=== PATIENT | male | born 2000 | race Asian ===

== ENCOUNTER 2022-11-11 13:46 | Observation (INO) ==
--- NOTE | 2022-11-11 14:03 | Emergency Department Note ---
History of Present Illness General Chief complaint: Abdominal Pain Stated complaint: ABDOMINAL PAIN Time Seen by Provider: 11/11/22 13:54 History of Present Illness Maximum Pain Intensity: 3 This is a 22-year-old male that presents to the emergency department via private vehicle with complaints of "abdominal pain". The patient notes that this past Tuesday around 6 PM he began with right lower quadrant abdominal pain. Pain was quite intense initially. He notes now the pain has improved but is still present when he palpates the right lower quadrant. He denies any history of similar. He denies any pertinent past medical history, surgeries or allergies. No alleviating factors. Aggravating factors are palpation of the area. There has been no reported fevers or vomiting. No blood in the urine or stool. Current pain 05/07. Patient denies any testicular pain or penile pain. 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 Beliefs That Will Affect Care: None Current Living Situation Comment: Lives with roommates Other Information That Helps Us Care for You: No Feels Safe at Home: Yes Safety Concerns: Feels Safe At This Time Assistive Devices: None Review of Systems A total of 10 systems reviewed and were otherwise negative Physical Exam Vital Signs Vital Signs - 24 hr 11/11/22 13:48 11/11/22 14:08 11/11/22 16:56 Temperature 37.0 C Temperature Source Temporal Artery Scan Pulse Rate 89 Pulse Rate [Apical] 87 68 Pulse Rate [Finger] Pulse Rhythm [Apical] Pulse Strength [Apical] Respiratory Rate 16 18 18 Respiratory Effort / Characteristics Non-Labored Spontaneous Respiratory Depth Normal Respiratory Pattern Blood Pressure 136/80 Blood Pressure [Left Arm] 126/70 128/82 Blood Pressure Mean 98 Blood Pressure Mean [Left Arm] 88 97 Blood Pressure Position Sitting Blood Pressure Position [Left Arm] Pulse Oximetry 96 99 98 Oxygen Delivery Method Room Air Room Air Oxygen Flow Rate Sepsis Recent Fever Within 48 Hours No Sepsis New/Unexplained Change in Mental Status No Sepsis Action Taken by Nursing No Action Required EWS Level of Consciousness - Last Result EWS Temperature - Last Result EWS Respiratory Rate - Last Result EWS Oxygen Saturation - Last Result EWS Oxygen in Use - Last Result EWS Score EWS Clinical Risk 11/11/22 18:00 11/11/22 19:16 11/11/22 19:20 Temperature 37.6 C H 36.4 C L Temperature Source Oral Temporal Artery Scan Pulse Rate Pulse Rate [Apical] 98 H 106 H 95 H Pulse Rate [Finger] Pulse Rhythm [Apical] Regular Regular Regular Pulse Strength [Apical] Normal Normal Respiratory Rate 18 18 16 Respiratory Effort / Characteristics Non-Labored Spontaneous Non-Labored Spontaneous Non-Labored Spontaneous Respiratory Depth Normal Normal Normal Respiratory Pattern Regular Regular Regular Blood Pressure Blood Pressure [Left Arm] 143/80 H 121/58 L 124/52 L Blood Pressure Mean Blood Pressure Mean [Left Arm] 101 79 76 Blood Pressure Position Blood Pressure Position [Left Arm] Semi-fowlers Semi-fowlers Semi-fowlers Pulse Oximetry 100 99 99 Oxygen Delivery Method Room Air Oxymask Room Air Oxygen Flow Rate 4 Sepsis Recent Fever Within 48 Hours Sepsis New/Unexplained Change in Mental Status Sepsis Action Taken by Nursing EWS Level of Consciousness - Last Result EWS Temperature - Last Result EWS Respiratory Rate - Last Result EWS Oxygen Saturation - Last Result EWS Oxygen in Use - Last Result EWS Score EWS Clinical Risk 11/11/22 19:30 11/11/22 19:40 11/11/22 19:50 Temperature Temperature Source Pulse Rate Pulse Rate [Apical] 97 H 90 101 H Pulse Rate [Finger] Pulse Rhythm [Apical] Regular Regular Regular Pulse Strength [Apical] Normal Normal Normal Respiratory Rate 18 16 14 Respiratory Effort / Characteristics Non-Labored Spontaneous Non-Labored Spontaneous Non-Labored Spontaneous Respiratory Depth Normal Normal Normal Respiratory Pattern Regular Regular Regular Blood Pressure Blood Pressure [Left Arm] 115/56 L 115/61 115/63 Blood Pressure Mean Blood Pressure Mean [Left Arm] 75 79 80 Blood Pressure Position Blood Pressure Position [Left Arm] Semi-fowlers Semi-fowlers Semi-fowlers Pulse Oximetry 99 96 97 Oxygen Delivery Method Room Air Room Air Room Air Oxygen Flow Rate Sepsis Recent Fever Within 48 Hours Sepsis New/Unexplained Change in Mental Status Sepsis Action Taken by Nursing EWS Level of Consciousness - Last Result EWS Temperature - Last Result EWS Respiratory Rate - Last Result EWS Oxygen Saturation - Last Result EWS Oxygen in Use - Last Result EWS Score EWS Clinical Risk 11/11/22 20:00 11/11/22 20:15 11/11/22 20:15 Temperature 36.9 C 37.0 C Temperature Source Oral Oral Pulse Rate Pulse Rate [Apical] 91 H Pulse Rate [Finger] 92 H Pulse Rhythm [Apical] Regular Pulse Strength [Apical] Normal Respiratory Rate 14 16 Respiratory Effort / Characteristics Non-Labored Spontaneous Respiratory Depth Normal Respiratory Pattern Regular Blood Pressure Blood Pressure [Left Arm] 115/74 112/70 Blood Pressure Mean Blood Pressure Mean [Left Arm] 87 84 Blood Pressure Position Blood Pressure Position [Left Arm] Semi-fowlers Lying Pulse Oximetry 97 94 Oxygen Delivery Method Room Air Room Air Oxygen Flow Rate Sepsis Recent Fever Within 48 Hours Sepsis New/Unexplained Change in Mental Status Sepsis Action Taken by Nursing EWS Level of Consciousness - Last Result Spontaneously Alert EWS Temperature - Last Result 37.0 EWS Respiratory Rate - Last Result 16 EWS Oxygen Saturation - Last Result 94 EWS Oxygen in Use - Last Result No EWS Score 2 EWS Clinical Risk Low Risk VITAL SIGNS - Vital signs and nursing notes were reviewed. Stable and afebrile. GENERAL -22-year-old male appearing his stated age who is in no acute distress. Communicates well with provider and answers questions appropriately. SKIN - Without rashes. No meningeal or petechial rash. The skin overlying the abdomen is unremarkable. HEAD - NC/AT. EYES - Sclera anicteric. NECK - No nuchal rigidity. LUNGS - Chest wall symmetric without accessory muscle use, intercostals retractions, or central cyanosis. Normal vesicular breath sounds CTA B/L. No wheezes, rales, or rhonchi appreciated. CARDIAC - RRR with S1/S2. No murmur, rubs, or gallops appreciated. ABDOMEN - Abdominal contour normal without pulsations or visible masses. BS normoactive all four quadrants. There is right lower quadrant abdominal tenderness to palpation. No palpable masses, hepatosplenomegaly, or ascites noted. EXTREMITIES - No clubbing or peripheral cyanosis. +5/5 strength noted in UE/LE bilaterally. NEUROLOGIC - Cranial nerves II through XII grossly intact. PSYCH - A&Ox3 and cooperates fully with examiner. Pt is very pleasant and interacts well with examiner. Course Administered Medications Enoxaparin Sodium (Enoxaparin Inj 40 Mg/0.4 Ml Syr) 40 mg SQ Q24H GRACE Stop: 12/12/22 07:59 Last Admin: 11/12/22 07:50 Dose: 40 mg Documented By: JESÚS Lactated Ringer's (Lr) 1,000 mls @ 15 mls/hr IV .Q24H GRACE Stop: 12/11/22 18:14 Last Infusion: 11/11/22 18:18 Dose: 0 mls/hr Documented By: Admin: 11/11/22 18:16 Dose: 15 mls/hr Documented By: Lactated Ringer's (Lr) 1,000 mls @ 50 mls/hr IV .Q20H GRACE Stop: 12/11/22 21:14 Last Admin: 11/11/22 21:42 Dose: 50 mls/hr Documented By: ALBERT Ketorolac Tromethamine (Ketorolac 30 Mg/Ml Vial) 30 mg IV Q6H GRACE Stop: 11/13/22 07:01 Last Admin: 11/12/22 06:09 Dose: 30 mg Documented By: Admin: 11/12/22 00:16 Dose: 30 mg Documented By: ALBERT Oxycodone/Acetaminophen (Oxycodone/Acetaminophen 5mg/325mg Tab) 1 tab PO Q6H PRN PRN Reason: Pain Stop: 11/25/22 21:15 Last Admin: 11/11/22 21:41 Dose: 1 tab Documented By: ALBERT Discontinued Medications Bupivacaine HCl/Epinephrine Bitart (Bupivacaine/Epinephrine 0.25% 1:200,000 30 Ml Vial) Confirm Administered Dose 30 ml .ROUTE .STK-MED ONE Stop: 11/11/22 18:03 Last Admin: 11/11/22 19:03 Dose: 30 ml Documented By: LESLY Fentanyl Citrate (Fentanyl Citrate Pf 100 Mcg/2 Ml Vial) Confirm Administered Dose 100 mcg .ROUTE .STK-MED ONE Stop: 11/11/22 19:35 Last Increment: 11/11/22 19:36 Dose: 25 mcg Documented By: MAREK Cefoxitin Sodium (Mefoxin) 2,000 mg in 60 mls @ 100 mls/hr IV NOW STA Stop: 11/11/22 17:58 Last Admin: 11/11/22 21:47 Dose: Not Given Documented By: ALBERT Ioversol (Optiray 320 500ml) 85 ml IV ONCE ONE Stop: 11/11/22 15:44 Last Admin: 11/11/22 15:43 Dose: 85 ml Documented By: ADONIS Medical Decision Making Laboratory Data 11/11/22 14:11 11/11/22 14:11 Lab Results 11/11/22 11/11/22 11/11/22 Range/Units 14:11 14:11 14:45 WBC 5.51 (4.8-10.8) K/ul RBC 5.43 (4.70-6.10) M/uL Hgb 16.5 (14.0-18.0) g/dl Hct 47.1 (42.0-52.0) % MCV 86.7 (80.0-100.0) fL MCH 30.4 (25.0-34.0) pg MCHC 35.0 (32.0-36.0) g/dL RDW Std Deviation 38.3 (36.4-46.3) fL RDW Coeff of Srinivas 12.1 (11.5-14.5) % Plt Count 222 (130-400) K/uL MPV 11.0 (9.4-12.4) fL Immature Gran % (Auto) 0.2 % Neut % (Auto) 49.3 % Lymph % (Auto) 42.8 % Granite % (Auto) 6.4 % Eos % (Auto) 0.9 % Baso % (Auto) 0.4 % Neut # (Auto) 2.72 (1.40-6.50) K/uL Lymph # (Auto) 2.36 (1.20-3.40) K/uL Granite # (Auto) 0.35 (0.11-0.59) K/uL Eos # (Auto) 0.05 (0.00-0.50) K/uL Baso # (Auto) 0.02 (0.00-0.20) K/uL Immature Gran # (Auto) 0.01 (0.01-0.20) K/uL Sodium 138 (136-145) mmol/L Potassium 3.7 (3.5-5.1) mmol/L Chloride 103 (98-107) mmol/L Carbon Dioxide 28 (21-32) mmol/L Anion Gap 7 (3-11) BUN 18 (6-23) mg/dl Creatinine 0.96 (0.6-1.4) mg/dl Est Cr Clr Drug Dosing Not Reportable Est GFR ( Amer) 131.4 ml/min Est GFR (Non-Af Amer) 113.3 ml/min BUN/Creatinine Ratio 18.8 (10-20) Glucose 112 H (70-99(Fasting)) mg/dl Calcium 9.7 (8.6-10.3) mg/dl Total Bilirubin 1.1 H (0.2-1.0) mg/dl AST 18 (13-39) U/L ALT 17 (7-52) U/L Alkaline Phosphatase 67 (34-104) U/L Total Protein 8.4 H (6.0-8.3) gm/dl Albumin 5.0 (3.4-5.0) gm/dl Globulin 3.4 (2.5-4.0) gm/dl Albumin/Globulin Ratio 1.5 (0.9-2) Lipase 10 L (11-82) U/L Urine Color Yellow Urine Appearance Cloudy A (Clear) Urine pH 8.0 H (4.5-7.5) Ur Specific [place] 1.028 (1.000-1.030) Urine Protein Negative (Negative) Urine Glucose (UA) Negative (Negative) Urine Ketones Negative (Negative) Urine Blood Negative (Negative) Urine Nitrite Negative (Negative) Urine Bilirubin Negative (Negative) Urine Urobilinogen Negative (Negative) Ur Leukocyte Esterase Negative (Negative) Urine WBC (Auto) 0 (0-5) /hpf Urine RBC (Auto) 0-4 (0-4) /hpf U Hyaline Cast (Auto) 0 (0-5) /lpf U Epithel Cells (Auto) 0-5 (0-5) /lpf Urine Bacteria (Auto) Negative (Negative) Imaging Data Radiologist's Impression: ABDOMEN AND PELVIS CT WITH IV CONTRAST CT DOSE: 894.60 mGy.cm HISTORY: Acute right lower quadrant abdominal pain RLQ abd pain x 2 days TECHNIQUE: Multiaxial CT images of the abdomen and pelvis were performed following the IV administration of 84 cc of Optiray, A dose lowering technique was utilized adhering to the principles of ALARA. COMPARISON STUDY: None. FINDINGS: There are a few tiny nodular foci at the lung bases measuring up to 3 mm, likely benign. The liver, spleen, gallbladder, pancreas, kidneys, and adrenal glands are within normal limits. No bowel wall thickening or obstruction. The appendix is fluid-filled and slightly dilated with the appendiceal tip measuring 8 mm. Mucosal hyperemia with trace periappendiceal inflammation. No abscess. The pelvic organs are unremarkable. No suspicious lytic or blastic osseous lesions. IMPRESSION: 1. Findings suspicious for early acute appendicitis. Surgical consultation is needed. 2. No pneumoperitoneum or abscess. ACT 112: Negative or not required by law. The above report was generated using voice recognition software. It may contain grammatical, syntax or spelling errors. Electronically signed by: Giles Zhu M.D. 11/11/2022 3:58 PM MDM Narrative Patient was seen and evaluated as above in room A11. Review was performed of triage nursing notes and vital signs. No previous visits for review in the EMR at time of assessment. After obtaining a thorough history and physical examination the above work up was performed. Patient presents to us today with about 2 days worth of right lower quadrant abdominal pain. It is reproducible to palpation on examination of the right lower quadrant. He clinically is well- appearing and nontoxic. He is afebrile. Options of care were discussed with the patient. He respectfully declined pain medication. IV access was established. Labs were drawn. CT scan was obtained of the abdomen/pelvis noting location of symptoms. Labs reveal no leukocytosis or concerning anemia. Mild hyperglycemia 112. T. bili elevation at 1.1. Urinalysis negative for concerning process. CT scan is concerning for early acute appendicitis. Patient's symptoms are concerning for acute appendicitis. General surgery was consulted. Please refer to further documentation regarding his stay. Cefoxitin 2 g recommended by general surgery and was ordered. GCS: 15 In the evaluation and treatment of this patient the following differential diagnoses were entertained: UTI, pyelonephritis, kidney stone, appendicitis, diverticulitis, perforation, among others. Impression & Plan Acute appendicitis Discharge Plan Visit Data Chief Complaint: Abdominal Pain Stated Complaint: ABDOMINAL PAIN ED Provider: Roverto Smith ED Midlevel Provider: Shane Monteiro Discharge Problem: Acute appendicitis Patient Disposition: Admitted As Inpatient Condition: Good Discharge Instructions Interventions: ED Discharge Assessment Last Done: 11/11/22 18:01
[2022-11-11 15:02] LABS: Basophils # (auto) 0.02 K/uL (0.00-0.20); Basophils % (auto) 0.4 %; Eosinophils # (auto) 0.05 K/uL (0.00-0.50); Eosinophils % (auto) 0.9 %; Hematocrit (blood only) 47.1 % (42.0-52.0); Hemoglobin 16.5 g/dl (14.0-18.0); Immature Granulocytes # (auto) 0.01 K/uL (0.01-0.20); Immature Granulocytes % (auto) 0.2 %; Lymphocytes # (auto) 2.36 K/uL (1.20-3.40); Lymphocytes % (auto) 42.8 %; Mean Corpuscular Hemoglobin 30.4 pg (25.0-34.0); Mean Corpuscular Volume 86.7 fL (80.0-100.0); Monocytes # (auto) 0.35 K/uL (0.11-0.59); Monocytes % (auto) 6.4 %; Neutrophils # (auto) 2.72 K/uL (1.40-6.50); Neutrophils % (auto) 49.3 %; Platelet Count 222 K/uL (130-400); RDW Coefficient of Variation 12.1 % (11.5-14.5); RDW Standard Deviation 38.3 fL (36.4-46.3); Red Blood Count 5.43 M/uL (4.70-6.10); White Blood Count 5.51 K/ul (4.8-10.8)
[2022-11-11 15:04] LABS: Appearance Urine Cloudy (Clear); Bacteria Urine Automated Negative (Negative); Bilirubin Urine Negative (Negative); Blood Urine Negative (Negative); Cast Urine Automated 0 /lpf (0-5); Color Urine Yellow; Epithelial Cell Urine Auto 0-5 /lpf (0-5); Glucose Urine UA Negative (Negative); Ketones Urine Negative (Negative); Leukocyte Esterase Urine Negative (Negative); Nitrite Urine Negative (Negative); Protein Urine Negative (Negative); RBC Urine Automated 0-4 /hpf (0-4); Specific Gravity Urine 1.028 (1.000-1.030); Urobilinogen Urine Negative (Negative); WBC Urine Automated 0 /hpf (0-5)
[2022-11-11 15:15] LABS: Alanine Aminotransferase 17 U/L (7-52); Albumin Globulin Ratio 1.5 (0.9-2); Alkaline Phosphatase 67 U/L (34-104); Anion Gap 7 (3-11); Aspartate Aminotransferase 18 U/L (13-39); BUN Creatinine Ratio 18.8 (10-20); Bilirubin,Total 1.1 mg/dl (0.2-1.0); Blood Urea Nitrogen 18 mg/dl (6-23); Calcium 9.7 mg/dl (8.6-10.3); Carbon Dioxide 28 mmol/L (21-32); Chloride 103 mmol/L (98-107); Est GFR (African American) 131.4 ml/min; Est GFR (Non-African American) 113.3 ml/min; Globulin 3.4 gm/dl (2.5-4.0); Glucose 112 mg/dl (70-99(Fasting)); Lipase 10 U/L (11-82); Potassium 3.7 mmol/L (3.5-5.1); Sodium 138 mmol/L (136-145); Total Protein 8.4 gm/dl (6.0-8.3)
[2022-11-11] MEDS ORDERED: OPTIRAY 320 500ml IV ONE (15:43)
--- NOTE | 2022-11-11 15:59 | CT Scan Report ---
ABDOMEN AND PELVIS CT WITH IV CONTRAST CT DOSE: 894.60 mGy.cm HISTORY: Acute right lower quadrant abdominal pain RLQ abd pain x 2 days TECHNIQUE: Multiaxial CT images of the abdomen and pelvis were performed following the IV administrat ion of 84 cc of Optiray, A dose lowering technique was utilized adhering to the principles of ALARA. COMPARISON STUDY: None. FINDINGS: There are a few tiny nodular foci at the lung bases measuring up to 3 mm, likely benign. Th e liver, spleen, gallbladder, pancreas, kidneys, and adrenal glands are within normal limits. No isabel l wall thickening or obstruction. The appendix is fluid-filled and slightly dilated with the appendic eal tip measuring 8 mm. Mucosal hyperemia with trace periappendiceal inflammation. No abscess. The pe lvic organs are unremarkable. No suspicious lytic or blastic osseous lesions. IMPRESSION: 1. Findings suspicious for early acute appendicitis. Surgical consultation is needed. 2. No pneumoperitoneum or abscess. ACT 112: Negative or not required by law. The above report was generated using voice recognition software. It may contain grammatical, syntax o r spelling errors. Electronically signed by: Giles Zhu M.D. 11/11/2022 3:58 PM
[2022-11-11] MEDS ORDERED: cefOXitin 2,000 MG/60 ML BAG IV STA (17:23)
[2022-11-11] MEDS ORDERED: fentaNYL citrate PF 100 MCG/2 ML VIAL ONE ×3 (17:53→19:34)
[2022-11-11] MEDS ORDERED: MIDAZOLAM HCL 1 MG/ML 2ML VIAL ONE (17:53)
[2022-11-11] MEDS ORDERED: ROCURONIUM BROMIDE 10 MG/ML 5 ML VIAL IV ONE (17:59)
[2022-11-11] MEDS ORDERED: PROPOFOL IV EMULSION 10 MG/ML 20 ML VIAL IV ONE (17:59)
[2022-11-11] MEDS ORDERED: LIDOCAINE 2% 2 ML VIAL/AMP(20MG/ML) INFIL ONE (17:59)
[2022-11-11] MEDS ORDERED: DEXAMETHASONE SOD INJ 4 MG/ML VIAL ONE (17:59)
[2022-11-11] MEDS ORDERED: ONDANSETRON INJ 2 MG/ML 2 ML VIAL ONE (17:59)
[2022-11-11] MEDS ORDERED: BUPIVACAINE/EPINEPHRINE 0.25% 1:200,000 30 ML VIAL ONE (18:02)
[2022-11-11] MEDS ORDERED: LACTATED RINGER'S 1,000 ML IV SCH ×2 (18:15→21:15)
[2022-11-11] MEDS ORDERED: SUGAMMADEX SODIUM 200 MG/2 ML VIAL IV ONE (18:50)
[2022-11-11] MEDS ORDERED: KETOROLAC 30 MG/ML VIAL ONE (18:57)
--- NOTE | 2022-11-11 20:53 | Post Operative Brief Note ---
Immediate Post Op Note v1 Date of Surgery November 11, 2022 Pre & Post Diagnosis Operation Date: 11/11/22 18:00 Pre-Op Diagnosis: Acute Appendicitis Post-Op Diagnosis: Acute Appendicitis I identified the patient and participated in the time-out.: Yes Procedure Operation Date: 11/11/22 18:00 Actual Procedures p Laparoscopic Appendectomy(Not Applicable) - Darian Mancini MD Surgeon Darian Mancini MD Barker Operator none Estimated Blood Loss 5 Findings Consistent with Post-Op Diagnosis
--- NOTE | 2022-11-11 20:54 | Operative Report ---
Post Operative Report Pre & Post Diagnosis Operation Date: 11/11/22 18:00 Pre-Op Diagnosis: Acute Appendicitis Post-Op Diagnosis: Acute Appendicitis I identified the patient and participated in the time-out.: Yes Procedure Operation Date: 11/11/22 18:00 Actual Procedures p Laparoscopic Appendectomy(Not Applicable) - Darian Mancini MD Surgeon Darian Mancini MD Store Team Member none Estimated Blood Loss 5 Findings Consistent with Post-Op Diagnosis Specimens appendix Drains none Anesthesia Type General Complications no immediate complications Description of Procedure The patient was taken to the operating room, and placed supine on the operating table. A timeout was performed, perioperative antibiotics were administered, SCD boots were placed. After adequate anesthesia and analgesia was obtained, th e abdomen was prepped and draped in the normal sterile fashion. A 1 cm incision was made in the supraumbilical region and carried down to the level of the fascia. A trach hook was used to grasp the fascia and elevated and a varies needle was used to enter the abdominal cavity. The abdomen was insufflated to a pressure of 15 mmHg, and a 5 mm trocar was placed in this location. A 5 mm 30 degree laparoscope was placed into the abdominal cavity, and the abdomen was surveyed. The patient was placed in Trendelenburg and slightly to the left. One 5 mm trocar was placed in the right upper quadrant, and one 12 mm trocar was placed in the left lower quadrant under direct visualization. The right colon was identified and traced down to the cecum. The appendix was identified and elevated anteriorly and medially. A window was created at the base of the appendix with a [place] dissector. The Endo DARRELL stapler was used to transect the appendix at its base through noninflamed tissue, and subsequently the mesoappendix. The appendix was placed in an Endo Catch bag, and removed via the left lower quadrant port site. Attention was turned to hemostasis, which was excellent. The abdomen was copiously irrigated and suctioned free, and again hemostasis was found to be excellent. All trochars removed under direct visualization. The abdomen was desufflated. The fascia in the 12 mm port site was closed with a 0 Vicryl suture. The skin was closed with a running 4-0 Monocryl subcuticular stitch. Dermabond was applied. The patient tolerated the procedure without complication, and was transferred in stable condition to the PACU. All instrument, needle, and sponge counts were correct at the end of the case. I attest to the content of the Intraoperative Record and any orders documented therein. Any exceptions are noted below.
[2022-11-11] MEDS ORDERED: oxyCODONE/ACETAMINOPHEN 5mg/325mg TAB PO PRN (21:16)
[2022-11-11] MEDS ORDERED: MoRPHine SULFATE 2 MG/ML CARP IV PRN ×2 (21:16→21:19)
[2022-11-11] MEDS ORDERED: ONDANSETRON INJ 2 MG/ML 2 ML VIAL IV PRN (21:17)
[2022-11-12] MEDS: KETOROLAC 30 MG/ML VIAL IV SCH ×3 (00:16→12:41)
--- NOTE | 2022-11-12 05:50 | Anesthesiology Progress Note ---
Date of Service November 12, 2022 Anesthesia Post Procedure Vital Signs Vital Signs: Temp Pulse Pulse Pulse Resp BP BP 11/12/22 02:25 98.8 F 93 H 16 114/68 11/11/22 23:26 98.6 F 101 H 18 128/76 11/11/22 22:16 99.0 F 108 H 18 131/76 11/11/22 21:15 98.6 F 97 H 18 117/71 11/11/22 20:45 99.0 F 92 H 18 119/69 11/11/22 20:15 98.6 F 92 H 16 112/70 11/11/22 20:00 98.4 F 91 H 14 115/74 11/11/22 19:50 101 H 14 115/63 11/11/22 19:40 90 16 115/61 11/11/22 19:30 97 H 18 115/56 L 11/11/22 19:20 95 H 16 124/52 L 11/11/22 19:16 97.5 F L 106 H 18 121/58 L 11/11/22 18:00 99.7 F H 98 H 18 143/80 H 11/11/22 16:56 68 18 128/82 11/11/22 14:08 87 18 126/70 11/11/22 13:48 98.6 F 89 16 136/80 Pulse Ox O2 Del Method O2 Flow Rate 11/12/22 02:25 96 Room Air 11/11/22 23:26 95 Room Air 11/11/22 22:16 96 Room Air 11/11/22 21:15 97 Room Air 11/11/22 20:45 95 Room Air 11/11/22 20:15 94 Room Air 11/11/22 20:00 97 Room Air 11/11/22 19:50 97 Room Air 11/11/22 19:40 96 Room Air 11/11/22 19:30 99 Room Air 11/11/22 19:20 99 Room Air 11/11/22 19:16 99 Oxymask 4 11/11/22 18:00 100 Room Air 11/11/22 16:56 98 11/11/22 14:08 99 Room Air 11/11/22 13:48 96 Room Air Pain Intensity Abdomen: Pain Intensity: 4 Transfer of Care Handoff Completed per policy Notes Mental Status: alert / awake / arousable and participated in evaluation Patient Amnestic to Procedure: Yes Nausea / Vomiting: adequately controlled Pain: adequately controlled Airway Patency, RR, SpO2: stable & adequate BP & HR: stable & adequate Hydration State: stable & adequate Anesthetic Complications: no major complications apparent and Pt Satisfied with anesthetic care
[2022-11-12] MEDS ORDERED: ENOXAPARIN INJ 40 MG/0.4 ML SYR SQ SCH (08:00)
--- NOTE | 2022-11-12 09:03 | Surgery Progress Note ---
Date of Service November 12, 2022 Assessment & Plan (1) Acute appendicitis: Plan POD #1 s/p lap appendectomy Doing very well Advance diet as tolerated Out of bed, ambulate, incentive spirometry Probable discharge later today Follow-up in clinic in 2 weeks Admission and Anticipated Discharge Date Admission Date: November 11, 2022 Subjective POD #1 s/p lap appendectomy Some pain in the left lower quadrant; no nausea or vomiting; no fevers or chills. Tolerating clears Physical Exam Physical Exam: AFVSS NAD, A&Ox3 Abdomen soft, mild TTP diffusely Incisions healing well without erythema or discharge Dermabond in place Results & Data Vital Signs (Past 12 Hours) Vital Signs Temp Pulse Resp BP Pulse Ox O2 Del Method 11/12/22 07:30 36.5 C 77 16 122/69 97 Room Air 11/12/22 02:25 37.1 C 93 H 16 114/68 96 Room Air 11/11/22 23:26 37 C 101 H 18 128/76 95 Room Air 11/11/22 22:16 37.2 C 108 H 18 131/76 96 Room Air 11/11/22 21:15 37.0 C 97 H 18 117/71 97 Room Air
[2022-11-12] MEDS ORDERED: ACETAMINOPHEN 325 MG TAB PO PRN (13:35)
== END 2022-11-12 15:12 | disposition home or self-care (01) ==
LOC: ED 13:46 → OR 18:01 → 3N 18:01
DX: K35.80 Unspecified acute appendicitis